=== PATIENT | female | born 1995 | race Asian ===

== ENCOUNTER 2022-10-17 07:40 | Outpatient (CLI) | payer BC, OTHER | END 2022-10-17 07:41 | disposition home or self-care (01) | LOC: CSHRAD 07:40 | PROVIDERS: ATTEND Chiropractor | DX: M54.50 Low back pain, unspecified (principal); S33.9XXA Sprain of unspecified parts of lumbar spine and pelvis, initial encounter; M41.86 Other forms of scoliosis, lumbar region; M46.1 Sacroiliitis, not elsewhere classified | CPT/HCPCS: 72100; 72220 ==